=== PATIENT | female | born 1990 | race Caucasian/White ===

== ENCOUNTER 2021-12-07 19:48 | Emergency (ER) | payer OTHER ==
[~2021-12-07 19:48] MED LIST: AMOXICILLIN500 MG PO; CELEBREX200 MG PO; DICLOFENAC SODI75 MG PO; HUMALOG100 UNIT/1 SC; MELOXICAM15 MG PO; MOBIC15 MG PO; NAPROXEN500 MG PO; NEURONTIN300 MG PO; PROLEEVA 1,401400 MG PO; ULTRAM50 MG PO
[2021-12-07] MEDS ORDERED: CEPHALEXIN500 M1 PO (21:31)
== END 2021-12-07 21:50 | disposition home or self-care (01) ==
LOC: FER 19:48
DX: S61.012A Laceration without foreign body of left thumb without damage to nail, initial encounter (principal); S61.213A Laceration without foreign body of left middle finger without damage to nail, initial encounter; F17.210 Nicotine dependence, cigarettes, uncomplicated; E10.9 Type 1 diabetes mellitus without complications; W26.8XXA Contact with other sharp object(s), not elsewhere classified, initial encounter; Y92.009 Unspecified place in unspecified non-institutional (private) residence as the place of occurrence of the external cause
CPT/HCPCS: 90471; 90715